=== PATIENT | female | born 1965 | race American Indian/Alaskan Native ===

== ENCOUNTER 2017-09-25 11:16 | Inpatient (IN) | payer MEDICARE ==
[2017-09-25] MEDS ORDERED: ASPIRIN PO ONE (11:36)
[2017-09-25] MEDS ORDERED: ASPIRIN ONE (11:40)
[2017-09-25 12:33] LABS: Basophils # (Auto) 0.1 K/mm3 (0.0-0.1); Basophils % (Auto) 1.3 % (0.0-1.8); Eosinophils # (Auto) 0.2 K/mm3 (0.0-0.4); Eosinophils % (Auto) 4.2 % (0.0-4.3); Hematocrit 35.7 % (30.3-42.9); Hemoglobin 11.3 gm/dl (10.1-14.3); Lymphocytes # (Auto) 1.2 K/mm3 (1.2-5.4); Lymphocytes % (Auto) 28.3 % (13.4-35.0); Mean Corpuscular HGB Conc 32 % (30-34); Mean Corpuscular Hemoglobin 27 pg (28-32); Mean Corpuscular Volume 86 fl (79-97); Monocytes # (Auto) 0.3 K/mm3 (0.0-0.8); Monocytes % (Auto) 7.2 % (0.0-7.3); Platelet Count 197 K/mm3 (140-440); Red Blood Count 4.14 M/mm3 (3.65-5.03); Red Cell Distribution Width 19.4 % (13.2-15.2)
[2017-09-25 12:52] LABS: BUN/Creatinine Ratio 3; Blood Urea Nitrogen 25 mg/dL (7-17); Calcium 9.6 mg/dL (8.4-10.2); Hemolysis Index 6
[2017-09-26] MEDS ORDERED: NITROSTAT SL ONE (01:10)
--- NOTE | 2017-09-26 01:39 | XRay Report ---
FINAL REPORT EXAM: XR CHEST 1V AP HISTORY: chest pain COMPARISON: None available. FINDINGS: Frontal view(s) of the chest obtained. Mild cardiac enlargement. This partially obscures the left lung base. Crowding of bronchovascular markings centrally. No large consolidation or effusion. IMPRESSION: Mild cardiac enlargement. Shallow inspiration. No gross focal consolidation.
--- NOTE | 2017-09-26 02:13 | Emergency Department Report ---
ED Chest Pain HPI - General Chief Complaint: Chest Pain Stated Complaint: CP Time Seen by Provider: 09/25/17 22:42 Source: patient Mode of arrival: Ambulatory Limitations: No Limitations - History of Present Illness Initial Comments: 52 yo female who comes in today due to chest pain. She states that she started having the chest pain after her daughter was arrested for driving with a suspended license. The patient's daughter was and expecting at the time as well. Daughter delivered in detention. Mom states that when she found out she was sitting at home and started to have chest pain. Chest pain described as left-sided, pressure-like, 10/10, with radiation to her left arm and right chest. She also admits to not taking her blood pressure medications since Friday. In the ED she received aspirin and sublingual nitro. Cardiac stress testing one year ago was negative per the patient. MD Complaint: chest pain -: days(s) (3 days ago ) Onset: during rest Pain Location: left chest Pain Radiation: LUE, other (right chest ) Severity: moderate Severity scale (0 -10): 4 Quality: aching, sharp, pressure Consistency: constant Improves With: nothing Worsens With: other (stress/anxiety ) Context: other (daughter being jailed ) Treatments Prior to Arrival: none Aspirin use within the Past 7 Days: (0) No - Related Data On Oral Contraceptives: No Allergies Allergy/AdvReac Type Severity Reaction Status Date / Time No Known Allergies Allergy Verified 09/25/17 11:42 Heart Score - HEART Score History: Moderately suspicious EKG: Normal Age: 45-65 Risk factors: > 3 risk factors or hx of atherosclerotic disease Troponin: < normal limit HEART Score: 4 ED Review of Systems ROS: Stated complaint: CP Other details as noted in HPI Constitutional: denies: chills, fever Eyes: denies: eye pain, eye discharge, vision change ENT: denies: ear pain, throat pain Respiratory: denies: cough, shortness of breath, wheezing Cardiovascular: as per HPI, chest pain Endocrine: no symptoms reported Gastrointestinal: denies: abdominal pain, nausea, diarrhea Genitourinary: denies: urgency, dysuria, discharge Musculoskeletal: denies: back pain, joint swelling, arthralgia Skin: denies: rash, lesions Neurological: denies: headache, weakness, paresthesias Psychiatric: as per HPI (stress), anxiety Hematological/Lymphatic: denies: easy bleeding, easy bruising ED Past Medical Hx - Past Medical History Hx Hypertension: Yes Hx Diabetes: Yes Hx Renal Disease: Yes - Social History Smoking Status: Never Smoker ED Physical Exam - General Limitations: No Limitations General appearance: alert, in no apparent distress - Head Head exam: Present: atraumatic, normocephalic - Eye Eye exam: Present: normal appearance - ENT ENT exam: Present: mucous membranes moist - Neck Neck exam: Present: normal inspection - Respiratory Respiratory exam: Present: normal lung sounds bilaterally. Absent: respiratory distress - Cardiovascular Cardiovascular Exam: Present: regular rate, normal rhythm. Absent: systolic murmur, diastolic murmur, rubs, gallop - Extremities Exam Extremities exam: Present: normal inspection - Back Exam Back exam: Present: normal inspection - Neurological Exam Neurological exam: Present: alert, oriented X3 - Psychiatric Psychiatric exam: Present: normal affect, normal mood - Skin Skin exam: Present: warm, dry, intact, normal color. Absent: rash ED Course Vital Signs 09/25/17 09/25/17 09/25/17 11:29 21:53 22:00 Temperature 98.2 F Pulse Rate 73 72 68 Respiratory 18 16 15 Rate Blood Pressure 173/84 184/86 O2 Sat by Pulse 98 100 97 Oximetry 09/25/17 09/25/17 09/25/17 22:15 22:30 22:45 Temperature Pulse Rate 71 66 68 Respiratory 11 L 17 19 Rate Blood Pressure 184/86 163/78 163/78 O2 Sat by Pulse 98 94 97 Oximetry 09/25/17 09/25/17 09/25/17 22:48 23:00 23:15 Temperature Pulse Rate 67 68 Respiratory 20 16 13 Rate Blood Pressure 174/86 174/86 O2 Sat by Pulse 98 96 99 Oximetry 09/25/17 09/25/17 09/26/17 23:30 23:45 00:00 Temperature Pulse Rate 69 71 71 Respiratory 20 21 22 Rate Blood Pressure 170/88 163/78 179/91 O2 Sat by Pulse 96 94 93 Oximetry 09/26/17 09/26/17 09/26/17 00:15 00:30 00:45 Temperature Pulse Rate 71 68 70 Respiratory 20 17 21 Rate Blood Pressure 179/91 173/86 179/91 O2 Sat by Pulse 93 90 96 Oximetry JAMAICA score - [place] Score Age > 65: (0) No Aspirin use within the Past 7 Days: (0) No 3 or more CAD Risk Factors: (1) Yes 2 or more Angina events in past 24 hrs: (0) No Known CAD with more than 50% Stenosis: (0) No Elevated Cardiac Markers: (0) No ST Deviation Greater than 0.5mm: (0) No [place] Score: 1 ED Medical Decision Making - Lab Data Result diagrams: 09/25/17 12:20 09/25/17 12:20 - EKG Data -: EKG Interpreted by Me EKG shows normal: sinus rhythm Rate: normal - EKG Data When compared to previous EKG there are: previous EKG unavailable Interpretation: normal EKG 09/26/17 02:18 Second ekg normal. - Radiology Data Radiology results: report reviewed (mild cardiomegaly) - Medical Decision Making Chest pain Stress/anxiety secondary to daughter's situation Atypical chest pain? - Differential Diagnosis chest pain, stress/anxiety, atypical chest pain Critical care attestation.: If time is entered above; I have spent that time in minutes in the direct care of this critically ill patient, excluding procedure time. ED Disposition Clinical Impression: Chest pain, Chest pain, atypical, Stress, Anxiety Disposition: -09 OP ADMIT IP TO THIS HOSP Is pt being admited?: Yes Does the pt Need Aspirin: Yes Condition: Stable Instructions: Chest Pain (ED) Referrals: PRIMARY CARE, [Primary Care Provider] - 3-5 Days Time of Disposition: 02:20
[2017-09-26] MEDS ORDERED: ZOFRAN IV PRN (03:17)
[2017-09-26] MEDS ORDERED: TYLENOL PO PRN (03:17)
[2017-09-26] MEDS ORDERED: MORPHINE IV PRN (03:17)
[2017-09-26] MEDS ORDERED: DULCOLAX PR PRN (03:17)
[2017-09-26] MEDS ORDERED: MILK OF MAGNESIA PO PRN (03:17)
--- NOTE | 2017-09-26 03:48 | History and Physical Report ---
History of Present Illness Date of examination: 09/26/17 History of present illness: 52-year-old with a history of hypertension, end-stage renal disease on dialysis Friday, Friday, Friday, diabetes,hypothyroidism symptoms emergency room with complaints of chest pain. Pain started in the left arm radiating up to the epigastric area which she describes a pressure-like sensation, intermittent in nature lasting 5 minutes, intensity 5/ 10, she cannot identify exacerbating or relieving factors. Chest pain started on Friday and has been intermittent everyday. Onset of chest pain started when she heard and used that her daughter was arrested. She had a stress test 8 months ago which was negative. Denies nausea vomiting, shortness breath, diaphoresis or palpitation Review Of Systems: Constitutional: no weight loss Ears, eyes, nose, mouth and throat: no nasal congestion, no nasal discharge, no sinus pressure, blurry vision, diplopia Neck: No neck pain or rigidity. Cardiovascular: No palpitations Respiratory: No shortness of breath, cough Gastrointestinal: No abdominal pain, hematochezia Genitourinary : no dysuria, frequency , hematuria Musculoskeletal: no muscle ache Integumentary: no rash, no pruritis Neurological: no parathesias, focal weakness Endocrine: no cold or heat intolerance, no polyuria or polydipsia Hematologic/Lymphatic: no easy bruising, no easy bleeding, no gland swelling Allergic/Immunologic: no urticaria, no angioedema. PAST MEDICAL HISTORY:hypertension, end-stage renal disease on dialysis Friday, Friday, Friday, diabetes,hypothyroidism PAST SURGICAL HISTORY: AV fistula, thyroidectomy FAMILY HISTORY: Hypertension SOCIAL HISTORY: Denies alcohol tobacco, drugs Medications and Allergies Allergies Allergy/AdvReac Type Severity Reaction Status Date / Time No Known Allergies Allergy Verified 09/25/17 11:42 Active Meds: Active Medications Acetaminophen (Tylenol) 650 mg PO Q4H PRN PRN Reason: Pain MILD(1-3)/Fever >100.5/YI Aspirin (Aspirin) 325 mg PO QDAY JABIER Bisacodyl (Dulcolax) [address] QDAY PRN PRN Reason: Constipation unrelieved by MOM Enoxaparin Sodium (Lovenox) 30 mg SUB-Q QDAY JABIER Magnesium Hydroxide (Milk Of Magnesia) 30 ml PO Q4H PRN PRN Reason: Constipation Morphine Sulfate (Morphine) 2 mg IV Q4H PRN PRN Reason: Pain, Moderate (4-6) Ondansetron HCl (Zofran) 4 mg IV Q8H PRN PRN Reason: N/V unrelieved by Reglan Exam - Physical Exam Narrative exam: Gen. appearance: Patient lying in bed in no acute distress HEENT: Normocephalic/atraumatic, pupils equal round reactive to light, extra occular movement intact, no scleral icterus, no JVD or thyromegaly or nodule, neck is supple, mucous membrane moist, no erythema or exudate Heart: S1-S2, regular rate and rhythm Lungs: Clear to auscultation bilateral breathing comfortable Abdomen: Positive bowel sounds, nontender, nondistended, no organomegaly Extremities: No edema, cyanosis, clubbing Neuro:: Oriented 3 , cranial nerves II-12 intact, speech, motor intact Skin: No rash, nodules, warm dry - Constitutional Vitals: Temp Pulse Resp BP Pulse Ox 98.2 F 70 21 179/91 96 09/25/17 11:29 09/26/17 00:45 09/26/17 00:45 09/26/17 00:45 09/26/17 00:45 Results - Labs CBC & Chem 7: 09/25/17 12:20 09/25/17 12:20 Labs: Abnormal lab results 09/25/17 09/25/17 Range/Units 12:20 12:20 WBC 4.1 L (4.5-11.0) K/mm3 MCH 27 L (28-32) pg RDW 19.4 H (13.2-15.2) % Chloride 97.1 L (98-107) mmol/L BUN 25 H (7-17) mg/dL Creatinine 8.6 H (0.7-1.2) mg/dL - Imaging and Cardiology EKG: image reviewed Chest x-ray: image reviewed Assessment and Plan Assessment Chest pain, rule out ACS hypertension end-stage renal disease on dialysis diabetes hypothyroidism Plan Admit to medicine Check cardiac enzymes, consult cardiology Consult renal for dialysis Continued appropriate outpatient medications DVT prophylaxis
[2017-09-26] MEDS ORDERED: D50W (25GM) Syringe IV PRN (04:07)
[2017-09-26] MEDS ORDERED: APRESOLINE IV PRN (04:09)
[2017-09-26] MEDS ORDERED: NACL 0.9% 100 ML IV PRN (10:00)
[2017-09-26] MEDS ORDERED: LOVENOX SUB-Q SCH (10:00)
[2017-09-26] MEDS ORDERED: ASPIRIN PO SCH (10:00)
--- NOTE | 2017-09-26 10:00 | Consultation ---
History of Present Illness - Reason for Consult Consult date: 09/26/17 end stage renal disease, other (Anemia) - History of Present Illness The patient is a 52-year-old AAF with history significant for Type 2 DM, Hypertension, HLD, h/o Kidney Transplant (may 2002), failed kidney Tx, ESRD on hemodialysis (MWF) since Oct 2014 and Hypothyroidism presented to the ER with complaints of chest pain. CP started 3 days ago, midsternal, radiating to the left arm, intermittent, pressure-like, without any exacerbating or relieving factors. Yesterday while she was at the [employer] the pain got intense which made her to come to the ER. Her symptoms are better now. She had a stress test 8 months ago which was negative. Denies nausea, vomiting, abd pain, shortness breath, diaphoresis, palpitation, dizziness, weakness or syncope. She get hemod[facility] at [facility] [place] and was last dialyzed 2 days ago. Past History Past Medical History: anemia, diabetes, dialysis, ESRD, hypertension, hyperlipidemia, hypothyroidism Medications and Allergies Allergies Allergy/AdvReac Type Severity Reaction Status Date / Time No Known Allergies Allergy Verified 09/25/17 11:42 Active Meds: Active Medications Acetaminophen (Tylenol) 650 mg PO Q4H PRN PRN Reason: Pain MILD(1-3)/Fever >100.5/YI Aspirin (Aspirin) 325 mg PO QDAY JABIER Bisacodyl (Dulcolax) 10 mg ND QDAY PRN PRN Reason: Constipation unrelieved by MOM Dextrose (D50w (25gm) Syringe) 50 ml IV PRN PRN PRN Reason: Hypoglycemia Enoxaparin Sodium (Lovenox) 30 mg SUB-Q QDAY JABIER Hydralazine HCl (Apresoline) 5 mg IV Q6H PRN PRN Reason: Hypertension Last Admin: 09/26/17 06:57 Dose: 5 mg Insulin Aspart (Novolog) 0 units SUB-Q ACHS JABIER PRN Reason: Protocol Magnesium Hydroxide (Milk Of Magnesia) 30 ml PO Q4H PRN PRN Reason: Constipation Morphine Sulfate (Morphine) 2 mg IV Q4H PRN PRN Reason: Pain, Moderate (4-6) Ondansetron HCl (Zofran) 4 mg IV Q8H PRN PRN Reason: N/V unrelieved by Reglan Review of Systems Constitutional: no weight loss, no weight gain, no fever, no chills, no anorexia , no weakness, no poor appetite Ears, nose, mouth and throat: no epistaxis Breasts: deferred Cardiovascular: chest pain, high blood pressure, no orthopnea, no palpitations, no edema, no syncope, no lightheadedness, no shortness of breath, no dyspnea on exertion, no leg edema Respiratory: no cough, no hemoptysis, no shortness of breath Gastrointestinal: no abdominal pain, no nausea, no vomiting, no diarrhea, no hematemesis, no melena, no jaundice Genitourinary Female: no dysuria, no hematuria Rectal: no bleeding Musculoskeletal: no redness of joints, no hot joints Integumentary: no rash, no redness, no sores, no jaundice Neurological: no paralysis, no weakness, no seizures, no syncope, no headaches, no convulsions, no change in speech, no change in mentation Psychiatric: no disorientation Endocrine: no weight change Exam - Vital Signs Vital signs: Vital Signs Temp Pulse Resp BP Pulse Ox 98.2 F 73 18 173/84 98 09/25/17 11:29 09/25/17 11:29 09/25/17 11:29 09/25/17 11:29 09/25/17 11:29 - General Appearance General appearance: well-developed, well-nourished, appears stated age, other ( no distress) EENT: ATNC, PERRL, mucous membranes moist, hearing intact, vision intact Neck: Present: neck supple, trachea midline Respiratory: Clear to Ascultation Heart: regular, S1S2, no murmurs Gastrointestinal: Present: normoactive bowel sounds. Absent: tenderness, distended Integumentary: no rash, warm and dry Neurologic: no focal deficit, no asterixis, alert and oriented x3, CN 3-12 intact Musculoskeletal: Present: other (left arm stu fistula, no edema) Psychiatric: mood/affect appropriate, cooperative Results - Lab Results 09/25/17 12:20 09/25/17 12:20 Most recent lab results Calcium 9.6 mg/dL (8.4-10.2) 09/25/17 12:20 Assessment and Plan 1. ESRD: Continue hemodialysis three times a week, MWF schedule. HD today. 2. Anemia: Monitor. Epogen if needed. 3. Hypertension. 4. Chest pain: Followed by Cards. 5. Type 2 DM: Diet controlled.
[2017-09-26] MEDS ORDERED: NACL 0.9 (PRIMING MACHINE ONLY DIALYSIS) MC ONE (11:07)
--- NOTE | 2017-09-26 11:46 | Consultation ---
History of Present Illness Consult date: 09/26/17 Consult reason: chest pain History of present illness: 52 year old female presenting with acute onset retrosternal chest pain that lasted 1-2 min in duration, non-radiating, and occured when patient was very upset. patient is currently asymptomatic and receiving HD. ECg is showing no ischemic changes when comapred to ECG done at [facility] and troponin are negative. Patient had a stress MPI done 04/2016 at [facility] showing no ischemia with a normal LVEF Past History Past Medical History: anemia, diabetes, dialysis, ESRD, hypertension, hyperlipidemia, hypothyroidism Medications and Allergies Allergies Allergy/AdvReac Type Severity Reaction Status Date / Time No Known Allergies Allergy Verified 09/25/17 11:42 Active Meds: Active Medications Acetaminophen (Tylenol) 650 mg PO Q4H PRN PRN Reason: Pain MILD(1-3)/Fever >100.5/YI Aspirin (Aspirin) 325 mg PO QDAY JABIER Bisacodyl (Dulcolax) 10 mg DE QDAY PRN PRN Reason: Constipation unrelieved by MOM Dextrose (D50w (25gm) Syringe) 50 ml IV PRN PRN PRN Reason: Hypoglycemia Enoxaparin Sodium (Lovenox) 30 mg SUB-Q QDAY JABIER Hydralazine HCl (Apresoline) 5 mg IV Q6H PRN PRN Reason: Hypertension Last Admin: 09/26/17 06:57 Dose: 5 mg Sodium Chloride (Nacl 0.9%) 100 mls @ 999 mls/hr IV JAROCHO PRN PRN Reason: Hypotension Insulin Aspart (Novolog) 0 units SUB-Q ACHS JABIER PRN Reason: Protocol Magnesium Hydroxide (Milk Of Magnesia) 30 ml PO Q4H PRN PRN Reason: Constipation Morphine Sulfate (Morphine) 2 mg IV Q4H PRN PRN Reason: Pain, Moderate (4-6) Ondansetron HCl (Zofran) 4 mg IV Q8H PRN PRN Reason: N/V unrelieved by Reglan Review of Systems All systems: negative Physical Examination Vital Signs Temp Pulse Resp BP Pulse Ox 98.2 F 73 18 173/84 98 09/25/17 11:29 09/25/17 11:29 09/25/17 11:29 09/25/17 11:29 09/25/17 11:29 General appearance: no acute distress Neck: Positive: neck supple Cardiac: Positive: Reg Rate and Rhythm Lungs: Positive: Normal Exam Neuro: Positive: Grossly Intact Abdomen: Positive: Soft Results 09/25/17 12:20 09/25/17 12:20 CBC 09/25/17 Range/Units 12:20 WBC 4.1 L (4.5-11.0) K/mm3 RBC 4.14 (3.65-5.03) M/mm3 Hgb 11.3 (10.1-14.3) gm/dl Hct 35.7 (30.3-42.9) % Plt Count 197 (140-440) K/mm3 Lymph # 1.2 (1.2-5.4) K/mm3 [place] # 0.3 (0.0-0.8) K/mm3 Eos # 0.2 (0.0-0.4) K/mm3 Baso # 0.1 (0.0-0.1) K/mm3 Comprehensive Metabolic Panel 09/25/17 Range/Units 12:20 Sodium 140 (137-145) mmol/L Potassium 4.7 (3.6-5.0) mmol/L Chloride 97.1 L (98-107) mmol/L Carbon Dioxide 26 (22-30) mmol/L BUN 25 H (7-17) mg/dL Creatinine 8.6 H (0.7-1.2) mg/dL Glucose 85 (65-100) mg/dL Calcium 9.6 (8.4-10.2) mg/dL - EKG Interpretation EKG: sinus rhythm EKG interpretations - Telemetry EKG Rhythm: Sinus Rhythm Assessment and Plan Atypical chest pain No ischemic ECG findings Normal troponin Normal stress MPI 04/2016 at [facility] with a preserved LVEF Systemic hypertension ESRD on HD Recommendations: No further inpatient cardiac work-up is needed given recent work-up at [facility] May go home and follow-up as outpatient
[2017-09-26] MEDS: NOVOLOG SUB-Q SCH (12:08)
[2017-09-26] MEDS ORDERED: TYLENOL ONE (12:35)
--- NOTE | 2017-09-26 14:14 | Discharge Summary ---
Providers - Providers Date of Admission: 09/26/17 03:17 Date of discharge: 09/26/17 Attending physician: BETSY GARCIA 09/26/17 03:17 Consult to Physician [CONS] Routine Consulting Provider: HEIDI GARDINER Reason For Exam: hd Place consult to:: [facility] Notified:: office Phone number called:: [phone] Was contact made?: Yes If yes, spoke with:: rasheed Time called:: 09:33 09/26/17 03:20 Consult to Physician [CONS] Routine Consulting Provider: ISABEL ENCARNACION Reason For Exam: cp Notified:: private secretary pl call Primary care physician: BISCUIT PACKER Hospitalization Condition: Stable Pertinent studies: Chest x-ray showed mild cardiac enlargement, shallow inspiration, no gross focal consolidation Hospital course: 52 yo female who comes in today due to chest pain. She states that she started having the chest pain after her daughter was arrested for driving with a suspended license. The patient's daughter was and expecting at the time as well. Daughter delivered in [facility]. Mom states that when she found out she was sitting at home and started to have chest pain. Chest pain described as left-sided, pressure-like, 10/10, with radiation to her left arm and right chest. She also admits to not taking her blood pressure medications since Friday. In the ED she received aspirin and sublingual nitro. Cardiac stress testing one year ago was negative per the patient. As patient's chest pain was reproducible, patient likely suffered from costochondritis. Patient had a normal stress MPI April 2016, cardiac enzymes were negative, no ischemic changes on EKG. No further cardiac workup indicated at this time per cardiology. Patient was hemodialyzed while inpatient while and recommended to follow up with cardiology upon discharge. Discharge diagnoses Chest pain Hypertension Costochondritis Hypertension End-stage renal disease on dialysis Diabetes Hypothyroidism Disposition: - TO HOME OR SELFCARE Core Measure Documentation - Palliative Care Palliative Care/ Comfort Measures: Not Applicable - Core Measures Any of the following diagnoses?: none Exam - Constitutional Vitals: Temp Pulse Resp BP Pulse Ox 98.2 F 84 18 144/70 97 09/26/17 07:47 09/26/17 09:26 09/26/17 07:47 09/26/17 07:47 09/26/17 07:47 General appearance: Present: no acute distress, well-nourished - EENT Eyes: Present: PERRL ENT: hearing intact, clear oral mucosa - Neck Neck: Present: supple, normal ROM - Respiratory Respiratory effort: normal Respiratory: bilateral: CTA - Cardiovascular Heart Sounds: Present: S1 & S2. Absent: rub, click - Extremities Extremities: pulses symmetrical, No edema Peripheral Pulses: within normal limits - Abdominal General gastrointestinal: Present: soft, non-tender, non-distended Female genitourinary: Present: deferred - Integumentary Integumentary: Present: clear, warm, dry - Musculoskeletal Musculoskeletal: gait normal, strength equal bilaterally - Psychiatric Psychiatric: appropriate mood/affect, intact judgment & insight - Neurologic Neurologic: CNII-XII intact, moves all extremities - Allied Health Allied health notes reviewed: nursing Plan Activity: advance as tolerated, fall precautions, other (no strenuous activity until cleared by PCP/cardiology) Weight Bearing Status: Weight Bear as Tolerated Diet: low fat, low cholesterol, low salt, diabetic, renal Follow up with: PRIMARY MD PRAVIN [Primary Care Provider] - 3-5 Days ISABEL ENCARNACION MD [Staff Physician] - 7 Days
[2017-09-26 15:20] VITALS: BP 167/74
== END 2017-09-26 16:30 | disposition home or self-care (01) | DRG 205 ==
LOC: ED 11:16 → 4A 09-26 03:17
PROVIDERS: ADMIT Internal Medicine; ATTEND Hospitalist
PROC: 5A1D70Z Performance of Urinary Filtration, Intermittent, Less than 6 Hours Per Day (ICD-10-PCS; principal; 2017-09-26)
DX: M94.0 Chondrocostal junction syndrome [Tietze] (principal); N18.6 End stage renal disease; Z94.0 Kidney transplant status; I12.0 Hypertensive chronic kidney disease with stage 5 chronic kidney disease or end stage renal disease; E03.9 Hypothyroidism, unspecified; E11.22 Type 2 diabetes mellitus with diabetic chronic kidney disease; F41.9 Anxiety disorder, unspecified; E78.5 Hyperlipidemia, unspecified; D64.9 Anemia, unspecified; Z99.2 Dependence on renal dialysis
CPT/HCPCS: 36415; 71045; 80048; 84484; 85025; 93005; 93010; J0360; J1650; J7030